=== PATIENT | male | born 1985 | race American Indian/Alaskan Native ===

== ENCOUNTER 2022-04-02 08:51 | Emergency (ER) | payer SELFPAY ==
--- NOTE | 2022-04-02 12:05 | XRay Report ---
Lumbar spine 3 views INDICATION: Back pain FINDINGS: Alignment appears normal. Facet degenerative change L5-S1. Sacrum and sacroiliac joints norma ear normal. No acute findings. Cervical spine 3 views INDICATION: Fall FINDINGS: Endplate changes with small anterior disc osteophytes at C4-C5 and C5-C6. No subluxation. N o prevertebral soft tissue swelling. The posterior aspect of T1 not well seen. Signer Name: Tod Diez MD Signed: 04/02/2022 12:01 PM Workstation Name: [email or web address]
--- NOTE | 2022-04-02 17:52 | Cat Scan Report ---
CT cervical spine wo con INDICATION / CLINICAL INFORMATION: 36 years Male; fALL. TECHNIQUE: Axial CT images of the cervical spine were obtained. Sagittal and coronal reformatted images were pr oduced. All CT scans at this location are performed using CT dose reduction for ALARA by means of aut omated exposure control. COMPARISON: None available. FINDINGS: POST-SURGICAL CHANGES: None. ALIGNMENT: No significant abnormality. VERTEBRAE: No signs of fracture. Vertebral bodies are grossly normal in height throughout. No signif icant facet joint disease or osseous foraminal narrowing appreciated. INTRAVERTEBRAL DISCS: Minimal disc disease seen with no significant canal stenosis appreciated. PARASPINAL SOFT TISSUES: No significant abnormality. ADDITIONAL FINDINGS: None. IMPRESSION: 1. No signs of acute bony trauma to the cervical spine. Signer Name: Shin Vieira MD, III Signed: 04/02/2022 5:48 PM Workstation Name: [id number] [id number]
[2022-04-02] MEDS ORDERED: ACETAMINOPHEN 500 MG TAB PO ONE (21:43)
[2022-04-02] MEDS ORDERED: IBUPROFEN 600 MG TAB PO ONE (21:43)
--- NOTE | 2022-04-02 22:44 | Cat Scan Report ---
CT HEAD WITHOUT CONTRAST INDICATION / CLINICAL INFORMATION: HEAD INJURY. TECHNIQUE: All CT scans at this location are performed using CT dose reduction for ALARA by means of automated exposure control. COMPARISON: None available. FINDINGS: BRAIN PARENCHYMA: No acute intracranial hemorrhage. No evidence of recent infarct. No mass effect or midline shift. VENTRICULAR SYSTEM/EXTRA-AXIAL SPACES: Ventricles are normal for age. No extra-axial fluid collection . ORBITS: Normal as visualized. SKELETAL SYSTEM/SOFT TISSUES: Normal bones and soft tissues. PARANASAL SINUSES/MASTOID AIR CELLS: No significant abnormality. ADDITIONAL FINDINGS: None. IMPRESSION: 1. No acute intracranial abnormality. Signer Name: Nolberto Melara MD Signed: 04/02/2022 10:39 PM Workstation Name: [id number]
--- NOTE | 2022-04-02 23:21 | Emergency Department Report ---
ED Fall HPI - General Chief Complaint: Fall Stated Complaint: NECK AND BACK PAIN Source: patient Mode of arrival: Ambulatory - History of Present Illness Initial Comments: Patient is a 36-year-old -Marshallese male with no past medical history who presents to the ED with complaint of acute onset persistent headache, posterior neck pain and low back pain after he slipped off a 6 foot pallet at work and landed on his back on concrete hitting his head on the occipital area 24 hours ago. Patient states that the pain has been constant and persistent since the injury occurred 24 hours ago. Patient states that he has been taking oaqg-yak-ylzzfax medications with no relief. Patient states that in the last 12 hours any movement or physical activity made the pain worse in his neck and low back and he has had persistent headache since then. Patient denies dizziness, syncope, nausea and vomiting, loss of consciousness, seizures, lightheadedness, chest pain and shortness of breath, abdominal pain, numbness and tingling or weakness of upper and lower extremities bilaterally or urinary and bowel incontinence and saddle paresthesia. MD Complaint: fall, other (Neck pain, low back pain and headache) -: Sudden, hour(s) (24) Fall From: standing When Fall Occurred: 24 hours [employer] Fall Witnessed: yes, by bystander Place Fall Occurred: work Loss of Consciousness: none Prolonged Down Time?: no Symptoms Prior to Fall: none Location: head, neck, back (lower back) Severity: severe Severity scale (0 -10): 8 Quality: sharp, aching Context: tripped/slipped Associated Symptoms: denies, headache, neck pain. denies: numbness, weakness, chest paint, shortness of breath, abdominal pain, hematuria, unable to walk, lightheaded, vertigo - Related Data Previous Rx's Medication Instructions Recorded Last Taken Type Baclofen 20 mg PO Q12H PRN #20 tab 04/02/22 Unknown Rx Ibuprofen [Motrin] 800 mg PO Q8HR PRN #30 tablet 04/02/22 Unknown Rx traMADoL [Ultram] 50 mg PO Q6HR PRN #12 tablet 04/02/22 Unknown Rx Allergies Allergy/AdvReac Type Severity Reaction Status Date / Time No Known Allergies Allergy Verified 04/02/22 09:48 ED Review of Systems ROS: Stated complaint: NECK AND BACK PAIN Other details as noted in HPI Constitutional: denies: chills, fever Eyes: denies: eye pain, eye discharge, vision change ENT: denies: ear pain, throat pain Respiratory: denies: cough, shortness of breath, wheezing Cardiovascular: denies: chest pain, palpitations Endocrine: no symptoms reported Gastrointestinal: denies: abdominal pain, nausea, diarrhea Genitourinary: denies: urgency, dysuria Musculoskeletal: back pain (lower back pain), arthralgia (lower back ). denies: joint swelling Skin: denies: rash, lesions Neurological: denies: headache, weakness, paresthesias Psychiatric: denies: anxiety, depression Hematological/Lymphatic: denies: easy bleeding, easy bruising ED Past Medical Hx - Past Medical History Previous Medical History?: No - Surgical History Past Surgical History?: No - Social History Smoking Status: Never Smoker - Medications Home Medications: Home Medications Medication Instructions Recorded Confirmed Last Taken Type Baclofen 20 mg PO Q12H PRN #20 tab 04/02/22 Unknown Rx Ibuprofen [Motrin] 800 mg PO Q8HR PRN #30 tablet 04/02/22 Unknown Rx traMADoL [Ultram] 50 mg PO Q6HR PRN #12 tablet 04/02/22 Unknown Rx ED Physical Exam - General Limitations: No Limitations General appearance: alert, in no apparent distress - Head Head exam: Present: atraumatic, normocephalic, normal inspection - Eye Eye exam: Present: normal appearance, PERRL, EOMI Pupils: Present: normal accommodation - ENT ENT exam: Present: normal exam, normal orophraynx, mucous membranes moist, TM's normal bilaterally, normal external ear exam - Neck Neck exam: Present: normal inspection, tenderness (Palpable cervical paraspinal musculoskeletal tenderness), full ROM - Respiratory Respiratory exam: Present: normal lung sounds bilaterally. Absent: respiratory distress, wheezes, rhonchi, stridor, chest wall tenderness, accessory muscle use, decreased breath sounds, prolonged expiratory - Cardiovascular Cardiovascular Exam: Present: regular rate, normal rhythm, normal heart sounds. Absent: systolic murmur, diastolic murmur, rubs, gallop - GI/Abdominal GI/Abdominal exam: Present: soft, normal bowel sounds. Absent: tenderness, guarding, rebound, hyperactive bowel sounds, hypoactive bowel sounds, organomegaly - Extremities Exam Extremities exam: Present: normal inspection, full ROM, normal capillary refill. Absent: tenderness - Back Exam Back exam: Present: normal inspection, full ROM, tenderness (Palpable lumbosacral paraspinal musculoskeletal tender), muscle spasm, paraspinal tenderness. Absent: CVA tenderness (L), vertebral tenderness, rash noted - Neurological Exam Neurological exam: Present: alert, oriented X3, CN II-XII intact, normal gait, reflexes normal - Psychiatric Psychiatric exam: Present: normal affect, normal mood - Skin Skin exam: Present: warm, dry, intact, normal color. Absent: rash ED Course Vital Signs 04/02/22 04/02/22 04/02/22 09:41 21:52 21:53 Temperature 98.9 F Pulse Rate 76 Respiratory 14 16 16 Rate Blood Pressure 167/123 O2 Sat by Pulse 100 Oximetry ED Medical Decision Making - Radiology Data Radiology results: report reviewed, image reviewed [address] [address] Cat Scan Report Signed Patient: RERE BHATIA MR#: [id number] : 1985 Acct:[id number] Age/Sex: 36 / M ADM Date: 04/02/22 Loc: ED Attending Dr: Ordering Physician: MARCELO PEREZ Date of Service: 04/02/22 Procedure(s): CT head/brain wo con Accession Number(s): [id number] cc: MARCELO PEREZ CT HEAD WITHOUT CONTRAST INDICATION / CLINICAL INFORMATION: HEAD INJURY. TECHNIQUE: All CT scans at this location are performed using CT dose reduction for ALARA by means of automated exposure control. COMPARISON: None available. FINDINGS: BRAIN PARENCHYMA: No acute intracranial hemorrhage. No evidence of recent infarct. No mass effect or midline shift. VENTRICULAR SYSTEM/EXTRA-AXIAL SPACES: Ventricles are normal for age. No extra- axial fluid collection. ORBITS: Normal as visualized. SKELETAL SYSTEM/SOFT TISSUES: Normal bones and soft tissues. PARANASAL SINUSES/MASTOID AIR CELLS: No significant abnormality. ADDITIONAL FINDINGS: None. IMPRESSION: 1. No acute intracranial abnormality. Signer Name: Lakeshia Melara MD Signed: 04/02/2022 10:39 PM Workstation Name: [id number] Transcribed By: JS Dictated By: LAKESHIA MELARA MD Electronically Authenticated By: LAKESHIA MELARA MD Signed Date/Time: 04/02/222238 DD/ 35 TD/TT: -- [facility] [address] [place] [address] Cat Scan Report Signed Patient: RERE BHATIA MR#: [id number] : 1985 Acct:[id number] Age/Sex: 36 / M ADM Date: 04/02/22 Loc: ED Attending Dr: Ordering Physician: ZOLTAN MURRAY Date of Service: 04/02/22 Procedure(s): CT cervical spine wo con Accession Number(s): [id number] cc: ZOLTAN MURRAY CT cervical spine wo con INDICATION / CLINICAL INFORMATION: 36 years Male; fALL. TECHNIQUE: Axial CT images of the cervical spine were obtained. Sagittal and coronal reformatted images were produced. All CT scans at this location are performed using CT dose reduction for ALARA by means of automated exposure control. COMPARISON: None available. FINDINGS: POST-SURGICAL CHANGES: None. ALIGNMENT: No significant abnormality. VERTEBRAE: No signs of fracture. Vertebral bodies are grossly normal in height throughout. No significant facet joint disease or osseous foraminal narrowing appreciated. INTRAVERTEBRAL DISCS: Minimal disc disease seen with no significant canal stenosis appreciated. PARASPINAL SOFT TISSUES: No significant abnormality. ADDITIONAL FINDINGS: None. IMPRESSION: 1. No signs of acute bony trauma to the cervical spine. Signer Name: Shin Vieira MD, III Signed: 04/02/2022 5:48 PM Workstation Name: [id number] Transcribed By: HR Dictated By: Shin Vieira MD Electronically Authenticated By: Shin Vieira MD Signed Date/Time: 04/02/221747 DD/ 41 TD/TT: [facility] [address] [place] [address] XRay Report Signed Patient: RERE BHATIA MR#: [id number] : 1985 Acct:[id number] Age/Sex: 36 / M ADM Date: 04/02/22 Loc: ED Attending Dr: Ordering Physician: MICHAEL LAMA MD Date of Service: 04/02/22 Procedure(s): XR spine lumbosacral 2-3V Accession Number(s): [id number] cc: MICHAEL LAMA MD Fluoro Time In Minutes: Lumbar spine 3 views INDICATION: Back pain FINDINGS: Alignment appears normal. Facet degenerative change L5-S1. Sacrum and sacroiliac joints appear normal. No acute findings. Cervical spine 3 views INDICATION: Fall FINDINGS: Endplate changes with small anterior disc osteophytes at C4-C5 and C5-C6. No subluxation. No prevertebral soft tissue swelling. The posterior aspect of T1 not well seen. Signer Name: Tod Diez MD Signed: 04/02/2022 12:01 PM Workstation Name: [id number] Transcribed By: CHAUNCEY Dictated By: TAYLOR DIEZ MD Electronically Authenticated By: TAYLOR DIEZ MD Signed Date/Time: 04/02/221200 DD/ 99 TD/TT: - Medical Decision Making This is a 36-year-old -[place] male with no past medical history who presents to the ED with complaint of acute onset persistent headache, posterior neck pain and low back pain after he slipped off a 6 foot pallet at work and landed on his back on concrete hitting his head on the occipital area 24 hours ago. Patient states that the pain has been constant and persistent since the injury occurred 24 hours ago. Patient states that he has been taking ove [id number] medications with no relief. Patient states that in the last 12 hours any movement or physical activity made the pain worse in his neck and low back and he has had persistent headache since then. In the ED, patient is alert and oriented x3 and is not in any distress. Patient is hemodynamically stable. Patient was treated for pain in the ED. The head CT scan without contrast showed no acute intracranial abnormalities or hemorrhage. The C-spine CT scan without contrast showed no acute cervical disc fractures or subluxation. The L- spine x-ray showed no acute fractures or subluxations. On reevaluation, patient's pain is well controlled with medications. Patient has not exhibited any neurological signs in the ED. Patient was therefore discharged home on pain medications and advised to follow-up with his primary care physician in 5 to 7 days for reevaluation or return to the ED immediately if symptoms get worse. - Differential Diagnosis cervical sprain; muscle spasm; back injury; head injury Critical care attestation.: If time is entered above; I have spent that time in minutes in the direct care of this critically ill patient, excluding procedure time. ED Disposition Clinical Impression: Contusion of scalp, initial encounter, Cervical paraspinous muscle spasm, Spasm of muscle of lower back Disposition: 01 HOME / SELF CARE / HOMELESS Is pt being admited?: No Does the pt Need Aspirin: No Condition: Stable Instructions: Muscle Cramps and Spasms, [id number], Back Injury Prevention, [id number], Facial or Scalp Contusion, [id number], Cervical Sprain, [id number] Additional Instructions: The head CT scan without contrast showed no acute intracranial abnormalities or hemorrhage. The C-spine CT scan without contrast showed no acute cervical disc fractures or subluxations. The L-spine x-ray showed no acute lumbar disc fractures or subluxations. Your injuries are likely musculoskeletal following your recent fall. Therefore take medication with food, drink plenty of fluids, follow-up with your primary care physician in 5 to 7 days for reevaluation. Return to the ED immediately if your symptoms get worse. Prescriptions: Baclofen 20 mg PO Q12H PRN #20 tab PRN Reason: Muscle Spasm Ibuprofen [Motrin] 800 mg PO Q8HR PRN #30 tablet PRN Reason: Pain , Severe (7-10) traMADoL [Ultram] 50 mg PO Q6HR PRN #12 tablet PRN Reason: Pain Referrals: [facility] [Provider Group] - 7-10 days Forms: Work/School Release Form(ED) Time of Disposition: 23:30 Print Language: SLOVAK
[2022-04-03 00:11] VITALS: BP 175/115
== END 2022-04-03 00:11 | disposition home or self-care (01) ==
LOC: ED 08:51
DX: S00.03XA Contusion of scalp, initial encounter (principal); X58.XXXA Exposure to other specified factors, initial encounter; Y93.89 Activity, other specified; Y92.89 Other specified places as the place of occurrence of the external cause; Y99.8 Other external cause status; M62.838 Other muscle spasm; M62.830 Muscle spasm of back
CPT/HCPCS: 70450; 72040; 72100; 72125; 99284